=== PATIENT | male | born 1960 | race Caucasian/White ===

== ENCOUNTER 2016-06-10 15:36 | Emergency (ER) | payer OTHER ==
[~2016-06-10] VITALS: Ht 182.9 cm; Wt 104.3 kg
[2016-06-10 15:42] VITALS: BP 150/97
== END 2016-06-10 17:30 | disposition home or self-care (01) ==
LOC: ED 15:36
DX: S61.511A Laceration without foreign body of right wrist, initial encounter (principal); X58.XXXA Exposure to other specified factors, initial encounter; Y93.89 Activity, other specified; Y99.8 Other external cause status; Y92.89 Other specified places as the place of occurrence of the external cause
CPT/HCPCS: 90715

== ENCOUNTER 2016-06-12 09:40 | Emergency (ER) | payer OTHER ==
[~2016-06-12] VITALS: Ht 182.9 cm; Wt 104.8 kg
[2016-06-12 10:49] VITALS: BP 131/76
== END 2016-06-12 11:04 | disposition home or self-care (01) ==
LOC: ED 09:40
DX: S61.512A Laceration without foreign body of left wrist, initial encounter (principal); X58.XXXA Exposure to other specified factors, initial encounter; Y93.89 Activity, other specified; Y99.8 Other external cause status; Y92.89 Other specified places as the place of occurrence of the external cause